=== PATIENT | male | born 1975 | race Caucasian/White ===

== ENCOUNTER 2018-02-15 09:36 | Observation (INO) ==
[2018-02-15] MEDS ORDERED: Isovue-370 500 ML INFUS..BTL IV ONE ×2 (09:52→16:34)
[2018-02-15] MEDS ORDERED: 0.9 % Sodium Chloride 1,000 ML IVC ONE (09:52)
[2018-02-15] MEDS ORDERED: *HR* Heparin 5,000 UNIT/ML VIAL IVP PRN ×2 (09:53)
[2018-02-15] MEDS ORDERED: *HR* Heparin 5,000 UNIT/ML VIAL IVP ONE (09:53)
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
[2018-02-15] MEDS ORDERED: *HR* OxyCODONE Immed Rel 5 MG TABLET PO STA ×2 (10:00→12:02)
[2018-02-15] MEDS ORDERED: Heparin 25,000 UNIT/500 ML D5W 25,000 UNIT/500 ML BAG IVC SCH (10:00)
[2018-02-15 10:08] LABS: Basophils # 0.1 K/mcL (0.0-0.2); Basophils % 0.5 %; Eosinophils # 0.1 K/mcL (0.0-0.6); Eosinophils % 0.7 %; Hematocrit 47.6 % (37.5-50.1); Hemoglobin 17.1 g/dL (12.9-16.9); Immature Granulocytes % 0.4 % (0-4); Lymphocytes # 1.9 K/mcL (0.6-4.6); Lymphocytes % 14.8 %; Mean Corpuscular HGB Conc 35.9 g/dL (31.6-35.5); Mean Corpuscular Hemoglobin 31.7 pg (28.0-33.3); Mean Corpuscular Volume 88.1 fL (83.0-100.0); Mean Platelet Volume 9.8 fL (9.4-12.4); Monocytes # 0.6 K/mcL (0.0-1.3); Monocytes % 4.4 %; Neutrophils # 10.4 K/mcL (1.6-8.9); Platelet Count 227 K/mcL (140-400); Red Cell Distribution Width 12.5 % (11.5-14.5); Segmented Neutrophils % 79.2 %
[2018-02-15 10:20] LABS: INR 1.8
[2018-02-15 10:28] LABS: BUN/Creatinine Ratio 9 (6-26); Blood Urea Nitrogen 10 mg/dL (6-20); Calcium 9.1 mg/dL (8.6-10.3); Carbon Dioxide 23 mEq/L (23-29); Chloride 101 mEq/L (98-107); Glucose 253 mg/dL (70-105); Osmolality,Calculated 284 (280-300); Potassium 4.1 mEq/L (3.5-5.1); Sodium 133 mEq/L (136-145); Troponin I < 0.03 ng/mL (< 0.04); eGFR For Non-African Americans > 60 (> 60)
[2018-02-15 10:46] LABS: Heparin anti-factor XA UFH > 2.00 IU/mL (0.30-0.70)
[2018-02-15] MEDS ORDERED: *HR* HYDROmorphone (PF) 1 MG/ML SYRINGE IVP ONE (13:12)
[2018-02-15 13:45] VITALS: BP 140/88
[2018-02-15] MEDS ORDERED: *HR* HYDROcodone/Acet 5/325 mg TABLET PO PRN (15:46)
[2018-02-15] MEDS ORDERED: Naloxone 0.4 MG/ML INJ IVP PRN (15:46)
[2018-02-15] MEDS ORDERED: Acetaminophen 325 MG TABLET PO PRN (15:46)
[2018-02-15] MEDS ORDERED: *HR* OxyCODONE Immed Rel 5 MG TABLET PO PRN ×2 (15:46→16:17)
[2018-02-15] MEDS ORDERED: D5% in Water 1,000 ML IVC PRN (16:04)
[2018-02-15] MEDS ORDERED: *HR* Dextrose 50 % in Water (Syg) 50 ML SYRINGE IVP PRN (16:04)
[2018-02-15] MEDS ORDERED: Dextrose Gel 15 GM/37.5 ML TUBE PO PRN ×2 (16:04)
[2018-02-15] MEDS ORDERED: *HR* HYDROmorphone 4 MG TABLET PO PRN (16:16)
--- NOTE | 2018-02-15 16:27 | Internal Med History&Physical ---
<AndrezronrichardsonChucky wagner - Last Filed: 02/15/18 17:24> Date of Encounter: 02/15/18 Time of Encounter: 15:30 Internal Medicine - H&P: HPI Chief complaint: Pain/swelling in LLE Admitted From: Emergency Dept Plans for Post Hospital Care: Home History of present illness: Mr. Mckeon is a 42 year old male w/PMH of 20 DVTs in past and now on Eliquis, diabetes controlled with oral antihyperglycemic medications, HLD, previous PE, and current tobacco abuse presents from the ED w/CC of pain and swelling in his LLE for the past several days and has become progressively worse. Pt. also reports SOB and CP. States he's had approx. 20 DVTs in the past w/o resolve. Pt. states he has had DVTs in RLE, but majority are in the LLE. Previously tested on Lovenox therapy but pt. states he could not do. Placed on Eliquis and instructed to double dose if sx occur. No alleviating or aggravating factors. Rates pain 9/10 and states he cannot sleep. Was seen at [facility] in past but cannot get back up for f/u regularly. Pt. denies recent illness, fever, chills, nausea , vomiting, headache, changes in vision, unusual bleeding, abdominal pain, cough , chest congestion, diarrhea, constipation, dizziness, lightheadedness, numbness , tingling, presyncope, or syncope. Past Med Surg Social Fam HX - Past Medical History Source: patient, old records reviewed, obtained from family Medical history: DVT, diabetes, hyperlipidemia, pulmonary embolus Psychiatric history: anxiety, depression - Past Surgical History Surgical History: non-contributory, other Additional surgical history: dental - Social History Smoking Status: Current every day smoker Packs per day: 1/2 - 1 PPD Smokeless Tobacco Status: No Alcohol use: none Drug use: none Current living situation: Home, With Family Activity Level: Uses cane/walker Recent Out of Country Travel Within the Last 8 Weeks: No Exposure or Possible Exposure to Illness During Travel: No - Family History Father Race: Family Member Ethnicity: Non- Living Status: Age at : 70 Cause of : Infection Hx Family Cardiac Disorders: Yes (IN) Hx Family Endocrine Disorder: Yes (DM) Mother Race: Family Member Ethnicity: Non- Living Status: Age at : 72 Cause of : IN Hx Family Cardiac Disorders: Yes (IN) Brother Race: Family Member Ethnicity: Non- Living Status: Still Living Hx Family Cardiac Disorders: Yes (Blood clots, Afib) Hx Family Endocrine Disorder: Yes (DM) Sister History Unknown: Yes Race: Family Member Ethnicity: Non- Living Status: Still Living Internal Medicine - H&P: Meds Simvastatin [Zocor] 40 mg PO HS 11/14/15 [History] metFORMIN [Glucophage] 500 mg PO DAILY 11/14/15 [History] Apixaban [Eliquis] 5 - 10 mg PO BID 08/26/17 [History] Albuterol Sulfate [Ventolin Hfa] 18 gm IH Q4H PRN 02/15/18 [History] Buspirone HCl [Buspar] 15 mg PO BID 02/15/18 [History] Citalopram [CeleXA] 20 mg PO DAILY 02/15/18 [History] Cyclobenzaprine [Flexeril] 10 mg PO BID 02/15/18 [History] Gabapentin [Neurontin] 800 mg PO TID 02/15/18 [History] Hydrocodone/Acetaminophen [Hydrocodon-Acetaminophn 10-325] 1 each PO BID PRN [History] Lisinopril [Zestril] 20 mg PO DAILY 02/15/18 [History] Loratadine [Claritin] 10 mg PO DAILY 02/15/18 [History] Mometasone/Formoterol [Dulera 200 Mcg/5 Mcg Inhaler] 26 gm IH BID 02/15/18 [ History] Montelukast [Singulair] 10 mg PO QPM 02/15/18 [History] Omeprazole [PriLOSEC] 20 mg PO DAILY 02/15/18 [History] Quetiapine Fumarate [SEROquel] 100 mg PO HS 02/15/18 [History] Ranitidine HCl [Acid Development Administrator] 150 mg PO BID 02/15/18 [History] glyBURIDE [GlyBURIDE] 5 mg PO BID 02/15/18 [History] risperiDONE [Risperdal] 2 mg PO BID 02/15/18 [History] 3 Allergy/AdvReac Type Severity Reaction Status Date / Time ampicillin Allergy See Verified 02/15/18 12:20 Comments Penicillins Allergy See Verified 02/15/18 12:20 Comments tramadol Allergy See Verified 02/15/18 12:20 Comments ibuprofen AdvReac Hypertensio Verified 02/15/18 12:20 n All Systems PM: A 10-system review of systems was performed and is negative for pertinent findings except as documented above in the HPI. - Constitutional Constitutional: no chills, no fever(s), no night sweats - EENT Eyes: no change in vision, no discharge, no pain, no photophobia Ears: no ear discharge, no ear pain, no tinnitus Nose, mouth and throat: no dysphagia, no nasal discharge, no neck pain, no sore throat - Breasts Breasts: as per HPI - Cardiovascular Cardiovascular ROS IM: as per HPI, chest pain, dyspnea, dyspnea on exertion, no diaphoresis, no lightheadedness, no palpitations, no syncope - Respiratory Respiratory: as per HPI, dyspnea, dyspnea on exertion, no cough, no wheezing, no excessive phlegm production - Gastrointestinal Gastrointestinal: no abdominal pain, no diarrhea, no hematemesis, no hematochezia, no melena, no nausea, no vomiting - Genitourinary Genitourinary ROS male: as per HPI - Musculoskeletal Musculoskeletal ROS IM: no numbness, no tingling - Integumentary Integumentary IM: as per HPI, other (Pale LLE w/swelling to calf), no rash, no unusual bruising - Neurological Neurological ROS: no confusion, no convulsions, no focal weakness, no numbness, no tingling, no tremor(s) - Psychiatric Psychiatric: as per HPI, anxiety, depression - Endocrine Endocrine IM: as per HPI - Hematologic/Lymphatic Hematologic/Lymphatic: no easy bruising - Allergic/Immunologic Allergic/Immunologic: as per HPI - Constitutional Vitals: Temp Pulse Resp BP Pulse Ox 97.7 F 75 15 140/88 98 02/15/18 09:54 02/15/18 13:42 02/15/18 13:42 02/15/18 13:42 02/15/18 13:42 General appearance: Present: cooperative, A&O X 3, pleasant, severe distress ( Pain in LLE), answers questions appropriately Exam: Patient examined at bedside in ED. Pt. was frustrated and wanting to leave. Risks and dangers explained to him. Pt. states he is in a lot of pain and uncomfortable. Reports SOB. Reports hx of DVTs x20 and PE. Pt. denies other sx or complaints at this time. VS: HR 75, RR 15, BP 140/88, SpO2 98% on RA. Will attempt to control pts. pain. Plan of care explained to pt. and family present who expressed understanding and agreement. - Head Head exam: Present: atraumatic, normocephalic - Eye Eye exam: Present: PERRL, conjuntiva pink, sclera anicteric Pupils: Present: PERRL - ENT ENT exam: Present: normal exam - Neck Neck exam general surgery: Present: normal inspection, supple, trachea midline. Absent: lymphadenopathy - Respiratory Respiratory exam: Present: CTAB. Absent: accessory muscle use, rales, rhonchi, wheezes - Cardiovascular Cardiovascular exam: Present: RRR, +S1, +S2. Absent: diastolic murmur, gallop, rubs, systolic murmur - GI/Abdominal GI/Abdominal exam: Present: normal bowel sounds, soft, no peritoneal signs. Absent: distended, tenderness - Rectal Rectal exam: Present: deferred - Additional comments: exam deferred. - Extremities Exam Extremities exam: Present: calf tenderness (LLE w/pallor), tenderness (LLE), warm, radial pulses palpable and symmetrical. Absent: cyanotic, pedal edema - Back Exam Back exam: Present: normal inspection - Neurological Exam Neurological exam: Present: alert, CN II-XII intact, oriented X3, no focal deficits. Absent: pronater drift, facial droop, speech deficit - Psychiatric Psychiatric exam: Present: normal affect, normal mood - Skin Skin exam: Present: dry, intact Internal Med - H&P Results - Labs CBC & Chem 7: 02/15/18 09:52 02/15/18 09:52 - EKG Data EKG shows normal: sinus rhythm - EKG Data Prior EKG available for review: yes EKG comments: 02/15/18 16:56 EKG dated 01/17/17 shows sinus rhythm with short NJ interval. EKG dated 02/15/18 sinus rhythm with borderline short NJ interval and baseline wander in leads V2, V5, and V6. Partial missing leads and V5. - Diagnostic Studies Chest x-ray Additional comments: Impressions Chest X-Ray 02/15/18 09:52 IMPRESSION: Hypoaeration with vascular crowding. D/ / 02/15/2018 10:41:33 German Birmingham MD / jordana Interpreting Provider: German Birmingham MD CT scan - chest Additional comments: Impressions Chest CTA 02/15/18 09:52 IMPRESSION: 1. No acute pulmonary artery embolism. 2. Ground-glass densities affecting upper lobes may reflect vascular congestion in the correct clinical setting. 3. Indeterminate right middle lobe pulmonary nodule 5.4 x 3.6 mm. RECOMMENDATIONS: Fleischner Society guidelines for follow-up and management of incidentally detected pulmonary nodules: Single Solid Nodule: Nodule size less than 6 mm In a low-risk patient, no routine follow-up. In a high-risk patient, optional CT at 12 months. -Low risk patients include individuals with minimal or absent history of smoking and other known risk factors. - High risk patients include individuals with a history or smoking or known risk factors. Radiology 2017 http://pubs.rsna.org/doi/full/10.1148/radiol.3259393887 D/ / 02/15/2018 12:15:08 German Birmingham MD / brett Interpreting Provider: German Birmingham MD - Assessment and plan (1) Recurrent deep vein thrombosis (DVT) of left lower extremity Status: Acute Assessment and plan: Acute on chronic DVT of LLE. Pt. reports he has has DVT in RLE but majority are always in LLE. States he previously tried Lovenox therapy but could not. Placed on Eliquis. Pt. reports pain and swelling in his LLE for the past several days and has become progressively worse. Pt. also reports SOB and CP. States he's had approx. 20 DVTs in the past w/o resolve. Pt. instructed to double dose of Eliquis if sx occur. No alleviating or aggravating factors. Rates pain 9/10 and states he cannot sleep. Was seen at [facility] in past but cannot get back up for f/u regularly. Was previously seen by Oncology Hematology. Pt. took Eliquis this a.m. at 07:00. Per Pharmacy, heparin drip to start 12 hours later. Vascular Surgery consult ordered and discussed w/Dr. Mcginnis w/recommendation for CTV of the abdomen/pelvis to focus on iliac venous system and I appreciate the consult and recommendations. Consult to Oncology Hematology ordered w/Dr. Ortega and I appreciate the consult and recommendations. Pt. discussed w/Dr. Becerra who agrees w/plan of care. Pt. is high risk for further morbidity and complications d/t current and recurrent DVTs x20 on Eliquis, current pain that is uncontrolled , hx of PE; and risk factors of family hx of blood clots, DM, HLD, and current tobacco abuse. Observation. (2) SOB (shortness of breath) Status: Acute Assessment and plan: Acute SOB w/current sx. Concern for possible PE given pts. hx of PE. CTA negative. Supplemental O2 w/titration and SpO2 monitoring. Continue pts. inhalers. (3) Encounter for tobacco use cessation counseling Status: Acute Assessment and plan: Pt.counseled >10 minutes regarding smoking cessation and risks/dangers of smoking w/r to pts. current DVTs. Pt. states he smokes 1/2 to 1 PPD. Denies need for nicotine patch or gum at this time. (4) Diabetes Status: Chronic Assessment and plan: Hx of chronic diabetes controlled by oral anti-hyperglycemic medications. Hold oral medications and administer low-dose correction sliding scale insulin and hypoglycemic protocol. BG checks ACHS. A1c in a.m. labs. Qualifiers: Diabetes mellitus type: type 2 Diabetes mellitus terminal system operator insulin use: unspecified terminal system operator insulin use status Diabetes mellitus complication status : with unspecified complications Qualified Code(s): E11.8 - Type 2 diabetes mellitus with unspecified complications (5) HLD (hyperlipidemia) Status: Chronic Assessment and plan: Hx of chronic HLD. Pt. reports recent lipid panel done. Continue pts. Zocor. Qualifiers: Hyperlipidemia type: pure hypercholesterolemia Qualified Code(s): E78.00 - Pure hypercholesterolemia, unspecified; E78.0 - Pure hypercholesterolemia (6) Hx of pulmonary embolus Status: Resolved Assessment and plan: Hx of PE. Concern for possible PE d/t reported SOB w/current sx. CTA shows no acute pulmonary artery embolism, groundglass densities affecting upper lobes may reflect vascular congestion in the correct clinical setting, and indeterminate right middle lobe pulmonary nodule 5.4 x 3.6 mm. (7) DVT prophylaxis Status: Acute Assessment and plan: Pt. to be placed on heparin drip for DVT in LLE at 20:00 tonight. Pharmacy instructions to wait 12 hours since pt. took PO Eliquis this morning at 07:00. (8) Anxiety and depression Status: Chronic Assessment and plan: Hx of chronic anxiety and depression. Continue pts. BuSpar, Celexa, Seroquel, and Risperdal. - Time Spent With Patient Total time spent is greater than 50% in coordination of care (as documented) at patient's floor/unit and/or counseling patient: Greater than 35 minutes <Jhon Becerra - Last Filed: 02/15/18 20:29> Date of Encounter: 02/15/18 Internal Medicine - H&P: HPI History of present illness: Mr. Mckeon is a 42 year old male All Systems PM: A 10-system review of systems was performed and is negative for pertinent findings except as documented above in the HPI. - Constitutional Vitals: Temp Pulse Resp BP Pulse Ox 97.7 F 75 15 140/88 98 02/15/18 09:54 02/15/18 13:42 02/15/18 13:42 02/15/18 13:42 02/15/18 13:42 Internal Med - H&P Results - Labs CBC & Chem 7: 02/15/18 09:52 02/15/18 09:52 - Impressions ITS Impressions Abdomen/Pelvis CTA 02/15/18 16:34 IMPRESSION: Although enhancement of the venous system is suboptimal, no filling defects are identified within the iliac veins or within the proximal femoral arteries to suggest DVT. Correlation with Doppler ultrasound should be considered for further evaluation. D/ / Mat Lira MD / Mat Lira MD Interpreting Provider: Mat Lira MD - Assessment and plan (1) Encounter for tobacco use cessation counseling Status: Acute (2) Recurrent deep vein thrombosis (DVT) of left lower extremity Status: Acute (3) SOB (shortness of breath) Status: Acute (4) Diabetes Status: Chronic Qualifiers: Diabetes mellitus type: type 2 Diabetes mellitus jail insulin use: unspecified terminal system operator insulin use status Diabetes mellitus complication status : with unspecified complications Qualified Code(s): E11.8 - Type 2 diabetes mellitus with unspecified complications (5) HLD (hyperlipidemia) Status: Chronic Qualifiers: Hyperlipidemia type: pure hypercholesterolemia Qualified Code(s): E78.00 - Pure hypercholesterolemia, unspecified; E78.0 - Pure hypercholesterolemia (6) DVT prophylaxis Status: Acute (7) Hx of pulmonary embolus Status: Resolved (8) Anxiety and depression Status: Chronic - Time Spent With Patient Total time spent is greater than 50% in coordination of care (as documented) at patient's floor/unit and/or counseling patient: - Attending Attestation Seen and assessed. continue management for recurrent DVT. Follow up vascular surgery recs. Agree with plan per [employer]
[2018-02-15] MEDS ORDERED: Insulin LISPRO 300 UNITS/3 ML VIAL SQ SCH ×2 (16:30→21:00)
--- NOTE | 2018-02-15 20:44 | Event Note ---
Date of Encounter: 02/15/18 Time of Encounter: 19:26 Alerted by pts. nurse WILDER Winslow that patient's heparin anti-extractor came back greater than 2.0. Will hold heparin drip and redraw at 23:00. Alerted at 19:33 the patient wanted AMA paperwork printed and nurse requested that I come see patient. Patient resting comfortably in bed and stating that he wanted to leave because the room was too hot, he needed to smoke, and he was becoming very anxious and bored. Told the patient I could give him something for anxiety which he declined. I again explained to the patient (as I did in the ED whe he was considering leaving AMA) the dangers of leaving AMA with his current DVT in LLE. Patient stated he understood the dangers and did not care. I also explained to the patient what smoking does to his vasculature by way of constriction and the affect it has on his current DVT. Patient stated he understood but needed a cigarette. Patient has a history of DVT 20. I again asked the patient to stay for his own safety which he declined. I again explained the risk of worsening DVT, PE, or possible . The pt. stated he understood the risks I had explained and that he was leaving to go home. Instructed pts. nurse to prepare the AMA paperwork and remove the pts. IV access prior to leaving the premises.
[2018-02-15] MEDS ORDERED: risperiDONE 1 MG TABLET PO SCH (21:00)
[2018-02-15] MEDS ORDERED: Gabapentin 400 MG CAPSULE PO SCH (21:00)
[2018-02-15] MEDS ORDERED: Famotidine 20 MG TABLET PO SCH (21:00)
[2018-02-15] MEDS ORDERED: Budesonide/Formoterol 160/4.5 1 PUFF INH IH SCH (22:00)
[2018-02-16] MEDS ORDERED: Loratadine 10 MG TABLET PO SCH (09:00)
[2018-02-16] MEDS ORDERED: Lisinopril 20 MG TABLET PO SCH (09:00)
--- NOTE | 2018-02-18 18:00 | Electrocardiograph Report ---
[address] [place], [place] [address] Test Date: 2018-02-15 Pat Name: Fred Mckeon Department: EXAM1 Room: 3A45 Gender: M International Sales Representative: : 1975 Requested By: [id number] Order Number: [id number] Reading MD: Estelle Gardner Measurements Intervals [place] Rate: 84 P: 40 WI: 119 QRS: 66 QRSD: 92 T: 49 QT: 355 QTc: 420 Interpretive Statements Sinus rhythm Borderline short [place] interval Electronically Signed On 02-18-2018 17:58:59 EDT by Estelle aGrdner
== END 2018-02-15 19:57 | disposition left against medical advice (07) ==
LOC: EMEROOARM 09:36 → INTOOBSV 12:52 → 3ANU 12:52
PROVIDERS: ADMIT Student in an Organized Health Care Education/Training Program; ATTEND Student in an Organized Health Care Education/Training Program